=== PATIENT | female | born 1975 | race Caucasian/White ===

== ENCOUNTER 2020-07-04 13:54 | Emergency (ER) | payer MEDICAID ==
[~2020-07-04] VITALS: Ht 160 cm; Wt 79.4 kg
[2020-07-04 14:16] VITALS: BP 119/75; Ht 160 cm; Wt 79.4 kg
== END 2020-07-04 15:30 | disposition home or self-care (01) ==
LOC: ED 13:54
DX: H72.91 Unspecified perforation of tympanic membrane, right ear (principal); H60.501 Unspecified acute noninfective otitis externa, right ear; G51.0 Bell's palsy; F17.200 Nicotine dependence, unspecified, uncomplicated
CPT/HCPCS: 99406; Q0162